=== PATIENT | female | born 1985 | race American Indian/Alaskan Native ===

== ENCOUNTER 2018-08-01 19:29 | Emergency (ER) | payer MEDICAID ==
[2018-08-01 19:54] VITALS: BP 172/130
--- NOTE | 2018-08-01 20:29 | EDM.PDOC ---
ED HPI GENERAL MEDICAL PROBLEM - General Chief Complaint: ENT Problem Stated Complaint: TOOTH PAIN Time Seen by Provider: 08/01/18 20:10 Source of Information: Reports: Patient History Limitations: Reports: No Limitations - History of Present Illness Onset: Gradual Duration: Day(s): (2 days) Location: Reports: Face (dental pain) Quality: Reports: Sharp, Throbbing Severity: Severe Improves with: Reports: None Worsens with: Reports: None Treatments CARCASS SPLITTER: Reports: Acetaminophen, NSAIDS Left Tooth/Teeth Pain Score (Numeric/FACES): 10 - Related Data Allergies Allergy/AdvReac Type Severity Reaction Status Date / Time Penicillins Allergy Rash Verified 08/01/18 19:58 Home Meds: Home Meds Labetalol HCl [Labetalol] 08/01/18 [History] Lisinopril 08/01/18 [History] Past Medical History Cardiovascular History: Reports: Hypertension 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 ACCOUNTING 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 History: 7 para 6 Other Musculoskeletal History: neck tension a couple of times/weak causes arms to get tingly Psychiatric History: Reports: Anxiety, Depression Endocrine/Metabolic History: Reports: Diabetes, Type II Social & Family History - Tobacco Use Smoking Status *Q: Light Tobacco Smoker Years of Tobacco use: 16 Packs/Tins Daily: 0.5 - Caffeine Use Caffeine Use: Reports: Energy Drinks, Soda - Recreational Drug Use Recreational Drug Use: Yes Recreational Drug Type: Reports: Methamphetamine Recreational Drug Use Frequency: Weekly ED ROS ENT - Review of Systems Review Of Systems: See Below Constitutional: Reports: Other (dental pain x 2 days) HEENT: Reports: Dental Pain, Glasses Respiratory: Reports: No Symptoms Cardiovascular: Reports: No Symptoms Endocrine: Reports: No Symptoms GI/Abdominal: Reports: No Symptoms : Reports: Other (has 6 children age 14 year to 1 year, all live with her Mom , has IUD in place for control.) Skin: Reports: Other (right AC with puncture wound from injection of meth, last use 3 days ago.) Neurological: Reports: No Symptoms Psychiatric: Reports: Other (addiction, discussed going to treatment for meth, she declines at this time, will think about it.) Hematologic/Lymphatic: Reports: No Symptoms Immunologic: Reports: No Symptoms ED EXAM, ENT - Physical Exam Exam: See Below Exam Limited By: No Limitations General Appearance: Thin, Other (laying on exam table curled up in ball) Eye Exam: Bilateral Eye: PERRL Ears: Normal External Exam Nose: Normal Inspection Mouth/Throat: Normal Lips, Normal Oropharynx, Dental Pain, Dental Tenderness, Other (multi upper front teeth with decay. painful to touch) Head: Atraumatic, Normocephalic Neck: Normal Inspection, Supple, Non-Tender, Full Range of Motion Respiratory/Chest: No Respiratory Distress, Lungs Clear Cardiovascular: Regular Rate, Rhythm, No Murmur Extremities: Other (left arm with 2 puncture wounds without signs of infection or abscess.) Neurological: No Motor/Sensory Deficits Psychiatric: Flat Affect Skin: Warm, Dry, Wound/Incision (left AC with puncture wounds without redness, discharge or signs of infection.) Lymphatic: No Adenopathy Course - Vital Signs Last Recorded V/S: Last Vital Signs Temp 36.1 C 08/01/18 19:57 Pulse 71 08/01/18 19:57 Resp 16 08/01/18 19:57 BP 172/130 H 08/01/18 19:57 Pulse Ox 100 08/01/18 19:57 Departure - Departure Time of Disposition: 20:38 Disposition: Home, Self-Care 01 Condition: Good Clinical Impression: Otitis media, Dental caries, Methamphetamine abuse - Discharge Information *PRESCRIPTION DRUG MONITORING PROGRAM REVIEWED*: Yes *COPY OF PRESCRIPTION DRUG MONITORING REPORT IN PATIENT JOSEPH: Not Applicable Referrals: PCP,None [Primary Care Provider] - Forms: ED Department Discharge Care Plan Goals: dental pain -clindamycin 150mg one capsule 3 times a day til gone -hydrocodone 5-325mg one po 3 to 4 hours as needed for pain #4 tabs -continue tylenol and motrin as directed -referral to Dental Clinic in morning. return to ER for fever greater than 101, facial swelling, nausea, vomiting, rash or any concerns. Meth abuse -offer treatment for addiction -discussed treatment for addiction. -Ms. Mackay declines - Problem List & Annotations (1) Dental caries SNOMED Code(s): 20912618 Code(s): K02.9 - DENTAL CARIES, UNSPECIFIED Status: Acute Priority: High Current Visit: Yes (2) Methamphetamine abuse SNOMED Code(s): 753284219 Code(s): F15.10 - OTHER STIMULANT ABUSE, UNCOMPLICATED Status: Acute Priority: Low Current Visit: Yes - Problem List Review Problem List Initiated/Reviewed/Updated: Yes - Assessment/Plan Plan: dental pain -clindamycin 150mg one capsule 3 times a day til gone -hydrocodone 5-325mg one po 3 to 4 hours as needed for pain #4 tabs -continue tylenol and motrin as directed -referral to Dental Clinic in morning. return to ER for fever greater than 101, facial swelling, nausea, vomiting, rash or any concerns. Meth abuse -offer treatment for addiction -discussed treatment for addiction. -Ms. Codie omalley
== END 2018-08-01 20:48 | disposition home or self-care (01) ==
LOC: JP.ED 19:29
DX: K02.9 Dental caries, unspecified (principal); F15.10 Other stimulant abuse, uncomplicated; S41.132A Puncture wound without foreign body of left upper arm, initial encounter; I10 Essential (primary) hypertension; F17.210 Nicotine dependence, cigarettes, uncomplicated; Z79.899 Other long term (current) drug therapy; Z88.0 Allergy status to penicillin; X58.XXXA Exposure to other specified factors, initial encounter
CPT/HCPCS: 99283

== ENCOUNTER 2018-08-14 19:33 | Emergency (ER) | payer MEDICAID ==
[2018-08-14] MEDS ORDERED: Lisinopril 20 MG Tab PO ONE (20:22)
[2018-08-14] MEDS ORDERED: Labetalol 100 MG Tab PO ONE (20:23)
--- NOTE | 2018-08-14 20:27 | EDM.PDOC ---
ED HPI GENERAL MEDICAL PROBLEM - General Chief Complaint: Genitourinary Problem Stated Complaint: UTI? Time Seen by Provider: 08/14/18 20:24 Source of Information: Reports: Patient History Limitations: Reports: No Limitations - History of Present Illness INITIAL COMMENTS - FREE TEXT/NARRATIVE: pt has the urge to void frequently. She has pressure over her bladder. She states her bladder symptoms started today. She has been out of her bp meds for about 1 week. She has a elevated bp. Onset: Today, Other ( The bladder symptoms started today. 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 ) HEENT: Reports: No Symptoms Respiratory: Reports: No Symptoms Cardiovascular: Reports: No Symptoms Endocrine: Reports: No Symptoms GI/Abdominal: Reports: Other ( Pain and pressure over her bladder. ) : Reports: Frequency, Other ( bladder pressure. ) Musculoskeletal: Reports: No Symptoms Skin: Reports: No Symptoms ED EXAM, GI/ABD - Physical Exam Exam: See Below Text/Narrative:: pt has been out of her bp meds--lisinopril and labetol for 1 week. Her bp is very elevated. She has urinary frequency and pressure over the bladder. She has the urge to void frequently. Exam Limited By: No Limitations General Appearance: Alert, Mild Distress, Other ( bp is 177/122. ) Eyes: Bilateral: Normal Appearance, EOMI Ears: Normal TMs Nose: Normal Inspection Throat/Mouth: Normal Inspection Head: Atraumatic Neck: Normal Inspection Respiratory/Chest: No Respiratory Distress Cardiovascular: Regular Rate, Rhythm GI/Abdominal Exam: Soft, Non-Tender (Female) Exam: Deferred Rectal (Female) Exam: Deferred Back Exam: Normal Inspection Extremities: Normal Inspection Neurological: Alert, Oriented, Normal Cognition Course - Vital Signs Last Recorded V/S: Last Vital Signs Temp 36.4 C 08/14/18 20:09 Pulse 88 08/14/18 20:46 Resp 14 08/14/18 20:09 BP 189/126 H 08/14/18 20:49 Pulse Ox 97 08/14/18 20:09 - Orders/Labs/Meds Labs: Laboratory Tests 08/14/18 08/14/18 Range/Units 20:00 21:32 Urine Color Yellow Urine Appearance Clear Urine pH 5.0 (4.5-8.0) Ur Specific [place] 1.025 (1.008-1.030) Urine Protein 30 H (NEGATIVE) mg/dL Urine Glucose (UA) Normal (NEGATIVE) mg/dL Urine Ketones Negative (NEGATIVE) mg/dL Urine Occult Blood Negative (NEGATIVE) Urine Nitrite Negative (NEGATIVE) Urine Bilirubin Small (NEGATIVE) Urine Urobilinogen 1 (NORMAL) mg/dL Ur Leukocyte Esterase Negative (NEGATIVE) Urine RBC 0-5 (0-5) Urine WBC 10-20 H (0-5) Ur Epithelial Cells Many Amorphous Sediment Few Urine Bacteria Few Urine Mucus Few Urine Other See note Urine HCG, Qual Negative Meds: Medications Discontinued Medications Generic Name Dose Route Start Last Admin Trade Name Freq PRN Reason Stop Dose Admin Labetalol HCl 100 mg 08/14/18 20:23 08/14/18 20:46 Normodyne PO 08/14/18 20:24 100 mg ONETIME ONE Administration Lisinopril 20 mg 08/14/18 20:22 08/14/18 20:49 Prinivil PO 08/14/18 20:23 20 mg DAILY ONE Administration Lisinopril Confirm 08/14/18 20:43 08/14/18 20:52 Prinivil Administered 08/14/18 20:44 Not Given Dose 20 mg .ROUTE .STK-MED ONE - Re-Assessments/Exams Free Text/Narrative Re-Assessment/Exam: 08/14/18 21:27 pt was given labetol and lisinopril here. She had a urine that did not look real marked. A culture was set up. Departure - Departure Time of Disposition: 21:28 Disposition: Home, Self-Care 01 Condition: Fair Clinical Impression: UTI (urinary tract infection), Hypertension, Has run out of medications - Discharge Information Instructions: Urinary Tract Infection, Adult, [id number], Hypertension, Easy- to-Read Referrals: PCP,None [Primary Care Provider] - Forms: ED Department Discharge Care Plan Goals: push fluids, pyridium 200mg tid for 2 days, cipro 500mg bid for 7 days. pt was given a 1 week supply of labetelol and lisinopril
[2018-08-14] MEDS ORDERED: Lisinopril 10 MG Tab ONE (20:43)
[2018-08-14 20:50] VITALS: BP 189/126
== END 2018-08-14 22:18 | disposition home or self-care (01) ==
LOC: JP.ED 19:33
DX: N39.0 Urinary tract infection, site not specified (principal); I10 Essential (primary) hypertension; E11.9 Type 2 diabetes mellitus without complications; Z88.0 Allergy status to penicillin; F17.210 Nicotine dependence, cigarettes, uncomplicated
CPT/HCPCS: 81001; 81025; 87086; 99284; A9270; 99283

== ENCOUNTER 2019-01-04 00:50 | Emergency (ER) | payer MEDICAID ==
[2019-01-04 01:10] VITALS: BP 153/104
[2019-01-04] MEDS ORDERED: HYDROmorphone 0.5 MG/0.5 ML Syringe IVPUSH ONE ×2 (01:17→02:03)
--- NOTE | 2019-01-04 01:19 | EDM.PDOC ---
ED HPI GENERAL MEDICAL PROBLEM - General Chief Complaint: Abdominal Pain Stated Complaint: STOMACH PAIN, RIGHT SIDE Time Seen by Provider: 01/04/19 01:00 Source of Information: Reports: Patient, Family History Limitations: Reports: No Limitations - History of Present Illness INITIAL COMMENTS - FREE TEXT/NARRATIVE: 33-year-old female with fairly sudden right upper quadrant pain after eating at 9 PM last evening. It's been very persistent, she tried Prilosec and Tums without relief. Some radiation of pain to her back, no nausea or vomiting. No fever or chills. No previous similar pain. She is very uncomfortable. Onset: Sudden Duration: Hour(s): (Pain for 4 hours) Location: Reports: Abdomen Severity: Moderate Associated Symptoms: Reports: No Other Symptoms Treatments BALE COVERER: Reports: Other (see below) Other Treatments BALE COVERER: Unknown Abdominal Pain Score (Numeric/FACES): 10 - Related Data Allergies Allergy/AdvReac Type Severity Reaction Status Date / Time Penicillins Allergy Rash Verified 09/24/18 07:36 Home Meds: Home Meds Labetalol HCl [Labetalol] 100 mg PO DAILY 08/01/18 [History] Lisinopril 20 mg PO DAILY 08/01/18 [History] Omeprazole 1 tab PO DAILY 09/17/18 [History] Sertraline HCl 1 tab PO DAILY 09/17/18 [History] Meclizine [Antivert] 25 mg PO Q6H PRN #20 tab 09/24/18 [Rx] Past Medical History HEENT History: Reports: Impaired Vision Cardiovascular History: Reports: Hypertension Gastrointestinal History: Reports: GERD 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 HAND History: 7 para 6 Other Musculoskeletal History: neck tension a couple of times/weak causes arms to get tingly Psychiatric History: Reports: Addiction, Anxiety, Depression, Suicide Attempt Endocrine/Metabolic History: Reports: Diabetes, Type II - Infectious Disease History Infectious Disease History: Reports: Chicken Pox Social & Family History - Tobacco Use Smoking Status *Q: Heavy Tobacco Smoker Years of Tobacco use: 15 Packs/Tins Daily: 1 - Caffeine Use Caffeine Use: Reports: Coffee - Recreational Drug Use Recreational Drug Use: No ED ROS GENERAL - Review of Systems Review Of Systems: See Below Constitutional: Denies: Fever, Chills HEENT: Reports: No Symptoms Respiratory: Denies: Shortness of Breath Cardiovascular: Denies: Chest Pain GI/Abdominal: Reports: Abdominal Pain. Denies: Constipation, Diarrhea : Reports: No Symptoms Skin: Reports: No Symptoms Neurological: Reports: No Symptoms ED EXAM, GI/ABD - Physical Exam Exam: See Below Exam Limited By: No Limitations General Appearance: Alert, Mild Distress (Tearful, fairly uncomfortable) Eyes: Bilateral: Normal Appearance (No jaundice) Respiratory/Chest: No Respiratory Distress, Lungs Clear Cardiovascular: Regular Rate, Rhythm GI/Abdominal Exam: Normal Bowel Sounds, Guarding (Patient is guarding in the right upper quadrant and epigastric area, very tender to palpation) Neurological: Alert Psychiatric: Anxious Skin Exam: Warm, Dry Course - Vital Signs Last Recorded V/S: Last Vital Signs Temp 96.8 F 01/04/19 01:11 Pulse 74 01/04/19 01:11 Resp 18 01/04/19 01:11 BP 153/104 H 01/04/19 01:11 Pulse Ox 99 01/04/19 01:11 - Orders/Labs/Meds Labs: Laboratory Tests 01/04/19 01/04/19 01/04/19 Range/Units 01:25 01:25 01:26 WBC 6.9 (4.5-11.0) K/uL RBC 4.46 (3.30-5.50) M/uL Hgb 12.3 (12.0-15.0) g/dL Hct 36.5 (36.0-48.0) % MCV 82 (80-98) fL MCH 28 (27-31) pg MCHC 34 (32-36) % Plt Count 230 (150-400) K/uL Neut % (Auto) 56 (36-66) % Lymph % (Auto) 32 (24-44) % [place] % (Auto) 9 H (2-6) % Eos % (Auto) 3 (2-4) % Baso % (Auto) 0 (0-1) % Sodium 140 (140-148) mmol/L Potassium 3.5 L (3.6-5.2) mmol/L Chloride 102 (100-108) mmol/L Carbon Dioxide 30 (21-32) mmol/L Anion Gap 11.5 (5.0-14.0) mmol/L BUN 14 D (7-18) mg/dL Creatinine 1.0 (0.6-1.0) mg/dL Est Cr Clr Drug Dosing 63.29 mL/min Estimated GFR (MDRD) > 60 (>60) Glucose 142 H (74-106) mg/dL Calcium 8.7 (8.5-10.1) mg/dL Total Bilirubin 0.4 (0.2-1.0) mg/dL AST 53 H (15-37) U/L ALT 110 H (12-78) U/L Alkaline Phosphatase 65 (46-116) U/L Total Protein 7.2 (6.4-8.2) g/dL Albumin 3.6 (3.4-5.0) g/dL Globulin 3.6 H (2.3-3.5) g/dL Albumin/Globulin Ratio 1.0 L (1.2-2.2) Lipase 78 (73-393) U/L Urine Color Yellow Urine Appearance Clear Urine pH 5.0 (4.5-8.0) Ur Specific [place] 1.025 (1.008-1.030) Urine Protein Trace (NEGATIVE) mg/dL Urine Glucose (UA) Normal (NEGATIVE) mg/dL Urine Ketones Negative (NEGATIVE) mg/dL Urine Occult Blood Negative (NEGATIVE) Urine Nitrite Negative (NEGATIVE) Urine Bilirubin Negative (NEGATIVE) Urine Urobilinogen 8 (NORMAL) mg/dL Ur Leukocyte Esterase Negative (NEGATIVE) Urine RBC 0-5 (0-5) Urine WBC 0-5 (0-5) Ur Epithelial Cells Moderate Amorphous Sediment Few Urine Bacteria Few Urine Mucus Moderate Urine Opiates Screen (NEGATIVE) Ur Oxycodone Screen (NEGATIVE) Urine Methadone Screen (NEGATIVE) Ur Propoxyphene Screen (NEGATIVE) Ur Barbiturates Screen (NEGATIVE) Ur Tricyclics Screen (NEGATIVE) Ur Phencyclidine Scrn (NEGATIVE) Ur Amphetamine Screen (NEGATIVE) U Methamphetamines Scrn (NEGATIVE) Urine MDMA Screen (NEGATIVE) U Benzodiazepines Scrn (NEGATIVE) U Cocaine Metab Screen (NEGATIVE) U Marijuana (THC) Screen (NEGATIVE) 01/04/19 Range/Units 01:26 WBC (4.5-11.0) K/uL RBC (3.30-5.50) M/uL Hgb (12.0-15.0) g/dL Hct (36.0-48.0) % MCV (80-98) fL MCH (27-31) pg MCHC (32-36) % Plt Count (150-400) K/uL Neut % (Auto) (36-66) % Lymph % (Auto) (24-44) % [place] % (Auto) (2-6) % Eos % (Auto) (2-4) % Baso % (Auto) (0-1) % Sodium (140-148) mmol/L Potassium (3.6-5.2) mmol/L Chloride (100-108) mmol/L Carbon Dioxide (21-32) mmol/L Anion Gap (5.0-14.0) mmol/L BUN (7-18) mg/dL Creatinine (0.6-1.0) mg/dL Est Cr Clr Drug Dosing mL/min Estimated GFR (MDRD) (>60) Glucose (74-106) mg/dL Calcium (8.5-10.1) mg/dL Total Bilirubin (0.2-1.0) mg/dL AST (15-37) U/L ALT (12-78) U/L Alkaline Phosphatase (46-116) U/L Total Protein (6.4-8.2) g/dL Albumin (3.4-5.0) g/dL Globulin (2.3-3.5) g/dL Albumin/Globulin Ratio (1.2-2.2) Lipase (73-393) U/L Urine Color Urine Appearance Urine pH (4.5-8.0) Ur Specific [place] (1.008-1.030) Urine Protein (NEGATIVE) mg/dL Urine Glucose (UA) (NEGATIVE) mg/dL Urine Ketones (NEGATIVE) mg/dL Urine Occult Blood (NEGATIVE) Urine Nitrite (NEGATIVE) Urine Bilirubin (NEGATIVE) Urine Urobilinogen (NORMAL) mg/dL Ur Leukocyte Esterase (NEGATIVE) Urine RBC (0-5) Urine WBC (0-5) Ur Epithelial Cells Amorphous Sediment Urine Bacteria Urine Mucus Urine Opiates Screen Negative (NEGATIVE) Ur Oxycodone Screen Negative (NEGATIVE) Urine Methadone Screen Negative (NEGATIVE) Ur Propoxyphene Screen Negative (NEGATIVE) Ur Barbiturates Screen Negative (NEGATIVE) Ur Tricyclics Screen Negative (NEGATIVE) Ur Phencyclidine Scrn Negative (NEGATIVE) Ur Amphetamine Screen Presumptive positive H (NEGATIVE) U Methamphetamines Scrn Presumptive positive H (NEGATIVE) Urine MDMA Screen Presumptive positive H (NEGATIVE) U Benzodiazepines Scrn Negative (NEGATIVE) U Cocaine Metab Screen Negative (NEGATIVE) U Marijuana (THC) Screen Negative (NEGATIVE) Meds: Medications Discontinued Medications Generic Name Dose Route Start Last Admin Trade Name Nancy PRN Reason Stop Dose Admin Hydromorphone HCl 0.5 mg 01/04/19 01:17 01/04/19 01:24 Dilaudid IVPUSH 01/04/19 01:18 0.5 mg ONETIME ONE Administration Hydromorphone HCl 0.5 mg 01/04/19 02:03 01/04/19 02:07 Dilaudid IVPUSH 01/04/19 02:04 0.5 mg ONETIME ONE Administration Sodium Chloride 1,000 mls @ 500 mls/hr 01/04/19 01:30 01/04/19 01:25 Normal Saline IV 500 mls/hr ASDIRECTED PENDING SALE TO [facility] Administration - Re-Assessments/Exams Free Text/Narrative Re-Assessment/Exam: 01/04/19 01:19 Normal saline at 500 mL an hour was started, she was given 0.5 mg of IV Dilaudid. CBC CMP and lipase were obtained. 01/04/19 02:04 White count was normal, AST and ALT which is slightly elevated, alkaline phosphatase and lipase were normal as well as bilirubin. Unfortunately she was positive for methamphetamine in the urine. Her pain was improved. She is going to return in the morning for a gallbladder ultrasound. Departure - Departure Time of Disposition: : Disposition: Home, Self-Care 01 Condition: Fair Clinical Impression: Abdominal pain Qualifiers: Abdominal location: right upper quadrant Qualified Code(s): R10.11 - Right upper quadrant pain - Discharge Information Instructions: Abdominal Pain, Adult, [id number] Referrals: PCP,None [Primary Care Provider] - Forms: ED Department Discharge Care Plan Goals: Return tomorrow morning for a gallbladder ultrasound, don't eat anything before the test. Recheck in the emergency room if not improving. Use pain medicines tonight as needed if pain is persistent.
[2019-01-04] MEDS ORDERED: Sodium Chloride 0.9% 1,000 ML IV SCH (01:30)
== END 2019-01-04 02:26 | disposition home or self-care (01) ==
LOC: JP.ED 00:50
DX: R10.11 Right upper quadrant pain (principal); I10 Essential (primary) hypertension; K21.9 Gastro-esophageal reflux disease without esophagitis; F41.9 Anxiety disorder, unspecified; E11.9 Type 2 diabetes mellitus without complications; F32.9 Major depressive disorder, single episode, unspecified; F17.210 Nicotine dependence, cigarettes, uncomplicated; Z88.0 Allergy status to penicillin
CPT/HCPCS: 36415; 80053; 80305; 81001; 83690; 85025; 96361; 96374; 96376; 99284; J1170; J7030

== ENCOUNTER 2019-01-04 08:57 | Inpatient (IN) | payer MEDICAID ==
[2019-01-04] MEDS ORDERED: Sodium Chloride 0.9% 10 ML Syringe FLUSH PRN (09:04)
[2019-01-04] MEDS ORDERED: fentaNYL 100 MCG/2 ML SDV IVPUSH ONE (09:08)
[2019-01-04] MEDS: Lactated Ringers 1,000 ML IV SCH ×2 (09:33→11:41)
[2019-01-04] MEDS: Ondansetron 4 MG/2 ML SDV IV PRN ×2 (09:34→19:23)
[2019-01-04] MEDS ORDERED: Ondansetron 4 MG/2 ML SDV ONE (09:55)
[2019-01-04] MEDS ORDERED: Rocuronium 50 MG/5 ML Vial ONE (09:55)
[2019-01-04] MEDS ORDERED: Neostigmine Methylsulfate 1 MG/ML 5 ML Syringe ONE (09:55)
[2019-01-04] MEDS ORDERED: Dexamethasone 4 MG/ML SDV ONE (09:55)
[2019-01-04] MEDS ORDERED: Glycopyrrolate 0.2 MG/ML 5 ML MDV ONE (09:55)
[2019-01-04] MEDS ORDERED: Propofol 200 MG/20 ML SDV ONE (09:55)
[2019-01-04] MEDS ORDERED: fentaNYL 250 MCG/5 ML SDV ONE (09:56)
[2019-01-04] MEDS ORDERED: cefOXitin 2 GM in Sodium Chloride 0.9% 50 ML IV ONE (12:00)
[2019-01-04] MEDS: Lidocaine 1% with EPINEPHrine 1:100,000 50 ML MDV ONE ×2 (12:51→13:23)
[2019-01-04] MEDS: Bupivacaine 0.5% 50 ML MDV ONE ×2 (12:51→13:23)
--- NOTE | 2019-01-04 13:18 | CRLCR ---
Indication: Dilatation of the common bile duct on ultrasound, cholelithiasis. Technique: Two intraoperative supine views of the upper abdomen. Comparison: Correlation with right upper quadrant ultrasound from same date. Findings/Impression: : Two images demonstrate contrast material opacifying the common bile duct and proximal biliary tree and proximal duodenum. No definite filling defect identified. There is pneumoperitoneum consistent with interoperative state. A gastric tube tip terminates at the level of the mid stomach. Dictated by Janeth Mazariegos MD @ Jan 04 2019 1:12PM Signed by Dr. Janeth Mazariegos @ Jan 04 2019 1:16PM
[2019-01-04] MEDS ORDERED: fentaNYL 100 MCG/2 ML SDV IVPUSH PRN (13:45)
[2019-01-04] MEDS ORDERED: Meclizine 25 MG Tab PO PRN (13:45)
[2019-01-04] MEDS: Acetaminophen/HYDROcodone 325-5 MG Tab PO PRN ×2 (19:23→23:13)
--- NOTE | 2019-01-04 21:10 | OR ---
DATE OF PROCEDURE: 01/04/2019 PREOPERATIVE DIAGNOSIS: Acute cholecystitis with cholelithiasis, slightly dilated common duct. POSTOPERATIVE DIAGNOSIS: Acute cholecystitis with cholelithiasis, unremarkable common duct. PROCEDURE: Laparoscopic cholecystectomy with intraoperative cholangiogram. SURGEON: Trever Acosta MD. ANESTHESIA: General endotracheal. INDICATION: This 33-year-old female is referred for a laparoscopic cholecystectomy. Last evening she developed severe upper abdominal pain primarily in the right upper quadrant. She presented to the emergency room. She was afebrile. Her alkaline phosphatase and total bilirubin were unremarkable. She was released to come back today for an abdominal ultrasound. This shows a distended gallbladder with a stone impacted in the neck of the gallbladder. Her pain continues. Also, it said that the common duct was 7 mm, which is just to the edge of being enlarged. She was taken to the operating room for a laparoscopic cholecystectomy with intraoperative cholangiogram. I counseled her for surgery including risks and alternatives and she gave her informed consent to proceed. DESCRIPTION OF PROCEDURE: After adequate general endotracheal anesthesia was obtained, the patient's abdomen was prepped and draped in the usual sterile fashion. The leg compression stockings were in place and used during the entire procedure. Time-out was held. An infraumbilical semicircular incision was made. Under direct vision, a 12-mm port was introduced in the abdomen through this incision using the Optiview technique. The camera was introduced into the abdomen and the abdomen was insufflated to a pressure of 15 mmHg with carbon dioxide. No evidence of intraabdominal injuries was seen. Under direct vision, a 12-mm port was placed in the epigastrium and a 5-mm port was placed in the right lower quadrant. The gallbladder was noted to be markedly distended. It had kind of a pale erythematous hue to it. There was some fluid around the gallbladder, also adhesions of omentum to it. The cystic duct and arteries were dissected free. A clip was placed on the cystic duct right at the gallbladder. A ductotomy was made next to this and through this, a cholangiocatheter manufactured by [employer] was placed. Cholangiograms were then obtained by injecting 7 and then 20 mL of half-strength contrast material. This showed good flow into the duodenum and a normal-sized duct. I did not notice any filling defects and there was contrast going back up into the hepatic radicals. The cholangiocatheter was removed and the duct was clipped three times adjacent to the ductotomy and divided. The cystic artery was then clipped up on the gallbladder once a couple of times proximally and divided between clips. The gallbladder was then dissected free from the gallbladder bed using Bovie electrocautery. The gallbladder was placed in a sample retrieval bag and elevated up through the anterior abdominal wall via the epigastric port site. To accomplish this, we did have to enlarge the incision because of a large stone in the thickened gallbladder. The gallbladder was cultured off the field. The epigastric port was reintroduced back into the abdomen. The gallbladder bed was irrigated and suctioned dry. Hemostasis was obtained with electrocautery. The fascial closure device was used to place a 0 Vicryl stitch in theepigastric fascial defect. The infraumbilical port was removed with a [id number] stitch of 0 Vicryl used to close this fascial defect. We evacuated as much CO2 as we could from the abdomen via the 5 mm port side in the right lower quadrant and then the 5-mm port site in the right lower quadrant was removed. Lidocaine 1% with epinephrine in a 50:50 mix with 0.5% Marcaine was infiltrated about all incisions. 4-0 Vicryl using a subcuticular stitch was placed to approximate the skin incisions. Dermabond was applied. The anesthesia was reversed. She was extubated and brought to recovery room in good condition. Trever Acosta MD /[id number] OSBALDO
[2019-01-04] MEDS: Dextrose 5%-Lactated Ringers 1,000 ML IV SCH (21:21)
[2019-01-05] MEDS: Acetaminophen/HYDROcodone 325-5 MG Tab PO PRN ×3 (03:43→13:39)
[2019-01-05] MEDS: Dextrose 5%-Lactated Ringers 1,000 ML IV SCH (05:25)
--- NOTE | 2019-01-05 06:43 | PCM.DCSUM1 ---
Discharge Summary - Hospital Course Free Text/Narrative:: This 33 year old female developed severe abdominal pain two nights ago. She presented to the ER and was released with plan for an abdominal ultrasound yesterday morning. This showed a single large gall stone in the neck of the gall bladder with a common duct at edge of enlarged at 7 mm. She was taken to the OR after receiving 2 grams of IV Cefoxitin. She underwent a laparoscopic cholecystectomy with intra operative cholangiogram which appeared unremarkable. She currently is eating, feels much better and wants to go home. Her alkaline phosphatase and total bilirubin are unremarkable. Her Hgb is greater than 10. She is discharged today in good condition. HPI Initial Comments: See above narrative. Brief History: See above narrative. Diagnosis: Stroke: No - Discharge Data Discharge Date: 01/05/19 Discharge Disposition: Home, Self-Care 01 Condition: Good - Discharge Diagnosis/Problem(s) (1) Status post laparoscopic cholecystectomy SNOMED Code(s): 389415344, [id number], [id number] ICD Code: Z90.49 - ACQUIRED ABSENCE OF OTHER SPECIFIED PARTS OF DIGESTIVE TRACT Status: Acute Current Visit: No - Patient Summary/Data Operative Procedure(s) Performed: Laparoscopic cholecystectomy with IOC. Consults: Consultations 01/04/19 13:45 Respiratory Care Assess and Treatment [CONS] Routine Comment: Physician Instructions: Post-Op Pneumonia Prevention Hospital Course: See above narrative. - Patient Instructions Diet: Usual Diet as Tolerated Activity: As Tolerated (Avoid activity that causes discomfort) Driving: Do Not Drive (Do not drive while taking narcotic pain medication. ) Showering/Bathing: Shower in AM Notify Provider of: Fever, Increased Pain, Swelling and Redness, Drainage, Nausea and/or Vomiting - Discharge Plan *PRESCRIPTION DRUG MONITORING PROGRAM REVIEWED*: No *COPY OF PRESCRIPTION DRUG MONITORING REPORT IN PATIENT JOSEPH: No Prescriptions/Med Rec: Acetaminophen/HYDROcodone [[place] 325-5 MG] 2 tab PO Q4H PRN #30 tablet PRN Reason: Pain (Moderate 4-6) Home Medications: Home Meds Labetalol HCl [Labetalol] 100 mg PO DAILY 08/01/18 [History] Lisinopril 20 mg PO DAILY 08/01/18 [History] Omeprazole 20 mg PO DAILY 09/17/18 [History] Sertraline HCl 50 mg PO DAILY 09/17/18 [History] Meclizine [Antivert] 25 mg PO Q6H PRN #20 tab 09/24/18 [Rx] Acetaminophen/HYDROcodone [[place] 325-5 MG] 2 tab PO Q4H PRN #30 tablet 01/05/19 [Rx] Patient Handouts: Laparoscopic Cholecystectomy Referrals: Trever Acosta MD [Physician] - - Discharge Summary/Plan Comment DC Time >30 min.: Yes Discharge Summary/Plan Comment: See above narrative. - Patient Data Vitals - Most Recent: Last Vital Signs Temp 97.4 F 01/05/19 03:00 Pulse 72 01/05/19 03:00 Resp 16 01/05/19 03:00 BP 105/57 L 01/05/19 03:00 Pulse Ox 98 01/05/19 03:00 I&O - Last 24 hours: Intake & Output 01/04/19 01/04/19 01/05/19 14:59 22:59 06:59 Intake Total 8 1720 Balance 8 1720 Lab Results - Last 24 hrs: Laboratory Results - last 24 hr 01/04/19 01/04/19 01/05/19 Range/Units 01:30 18:00 04:50 WBC 13.0 H 10.9 (4.5-11.0) K/uL RBC 4.25 3.75 (3.30-5.50) M/uL Hgb 11.9 L 10.5 L (12.0-15.0) g/dL Hct 35.0 L 31.5 L (36.0-48.0) % MCV 82 84 (80-98) fL MCH 28 28 (27-31) pg MCHC 34 33 (32-36) % Plt Count 200 181 (150-400) K/uL Total Bilirubin (0.2-1.0) mg/dL Alkaline Phosphatase (46-116) U/L HCG, Qual Negative 01/05/19 Range/Units 04:50 WBC (4.5-11.0) K/uL RBC (3.30-5.50) M/uL Hgb (12.0-15.0) g/dL Hct (36.0-48.0) % MCV (80-98) fL MCH (27-31) pg MCHC (32-36) % Plt Count (150-400) K/uL Total Bilirubin 0.9 D (0.2-1.0) mg/dL Alkaline Phosphatase 51 (46-116) U/L HCG, Qual IKKO Results - Last 24 hrs: Microbiology 01/04/19 13:55 Gram Stain - Final Abdominal Fluid - Aspirate 01/04/19 13:55 Gram Stain - Final Gallbladder Med Orders - Current: Current Medications Hydrocodone Bitart/Acetaminophen ([place] 325-5 Mg) 1 tab PO Q4H PRN PRN Reason: Pain (mild 1-3) Hydrocodone Bitart/Acetaminophen ([place] 325-5 Mg) 2 tab PO Q4H PRN PRN Reason: Pain (moderate 4-6) Last Admin: 01/05/19 03:43 Dose: 2 tab Fentanyl (Sublimaze) 50 mcg IVPUSH Q1H PRN PRN Reason: Pain (severe 7-10) Last Admin: 01/04/19 16:06 Dose: 50 mcg Lactated Ringer's (Ringers, Lactated) 1,000 mls @ 500 mls/hr IV ASDIRECTED [facility] Last Admin: 01/04/19 11:41 Dose: 500 mls/hr Dextrose/Lactated Ringer's (Dextrose 5%-Lactated Ringers) 1,000 mls @ 125 mls/ hr IV ASDIRECTED [facility] Last Admin: 01/05/19 05:25 Dose: 125 mls/hr Labetalol HCl (Normodyne) 100 mg PO DAILY [facility] Lisinopril (Prinivil) 20 mg PO DAILY [facility] Meclizine HCl (Antivert) 25 mg PO Q6H PRN PRN Reason: Dizziness Ondansetron HCl (Zofran) 4 mg IV Q4H PRN PRN Reason: Nausea/Vomiting Last Admin: 01/04/19 19:23 Dose: 4 mg Pantoprazole Sodium (Protonix) 40 mg PO ACBREAKFAST [facility] Sertraline HCl (Zoloft) 50 mg PO DAILY [facility] Sodium Chloride (Saline Flush) 10 ml FLUSH ASDIRECTED PRN PRN Reason: Keep Vein Open Discontinued Medications Bupivacaine HCl (Marcaine 0.5%) Confirm Administered Dose 50 ml .ROUTE .STK-MED ONE Stop: 01/04/19 10:50 Last Admin: 01/04/19 13:23 Dose: 20 ml Dexamethasone (Dexamethasone) Confirm Administered Dose 4 mg .ROUTE .STK-MED ONE Stop: 01/04/19 09:56 Fentanyl (Sublimaze) 50 mcg IVPUSH ONETIME ONE Stop: 01/04/19 09:09 Last Admin: 01/04/19 09:34 Dose: 50 mcg Fentanyl (Sublimaze) Confirm Administered Dose 250 mcg .ROUTE .STK-MED ONE Stop: 01/04/19 09:57 Glycopyrrolate (Robinul) Confirm Administered Dose 1 mg .ROUTE .STK-MED ONE Stop: 01/04/19 09:56 Cefoxitin Sodium 2 gm/ Sodium (Chloride) 50 mls @ 100 mls/hr IV ONCALL ONE Stop: 01/04/19 12:29 Last Admin: 01/04/19 11:56 Dose: 100 mls/hr Lactated Ringer's (Ringers, Lactated) 2,000 ml IRR .STK-MED ONE Stop: 01/04/19 13:25 Last Admin: 01/04/19 13:24 Dose: 2,000 ml Lidocaine/Epinephrine (Xylocaine 1% With Epinephrine 1:100,000) Confirm Administered Dose 50 ml .ROUTE .STK-MED ONE Stop: 01/04/19 10:50 Last Admin: 01/04/19 13:23 Dose: 20 ml Neostigmine Methylsulfate (Neostigmine) Confirm Administered Dose 5 mg .ROUTE .STK-MED ONE Stop: 01/04/19 09:56 Ondansetron HCl (Zofran) Confirm Administered Dose 4 mg .ROUTE .STK-MED ONE Stop: 01/04/19 09:56 Propofol (Diprivan 20 Ml) Confirm Administered Dose 200 mg .ROUTE .STK-MED ONE Stop: 01/04/19 09:56 Rocuronium [place] (Zemuron) Confirm Administered Dose 50 mg .ROUTE .STK-MED ONE Stop: 01/04/19 09:56
[2019-01-05] MEDS ORDERED: Pantoprazole 40 MG Tab.CR PO SCH (07:30)
[2019-01-05] MEDS ORDERED: Sertraline 50 MG Tab PO SCH (09:00)
[2019-01-05] MEDS ORDERED: Lisinopril 20 MG Tab PO SCH (09:00)
[2019-01-05] MEDS ORDERED: Labetalol 100 MG Tab PO SCH (09:00)
[2019-01-05 11:14] VITALS: BP 106/62
== END 2019-01-05 14:22 | disposition home or self-care (01) | DRG 419 ==
LOC: JP.MS 08:57
PROVIDERS: ADMIT Surgery; ATTEND Surgery
PROC: 0FT44ZZ Resection of Gallbladder, Percutaneous Endoscopic Approach (ICD-10-PCS; principal; 2019-01-04)
PROC: BF03YZZ Plain Radiography of Gallbladder and Bile Ducts using Other Contrast (ICD-10-PCS; 2019-01-04)
DX: K80.00 Calculus of gallbladder with acute cholecystitis without obstruction (principal); F17.210 Nicotine dependence, cigarettes, uncomplicated; I10 Essential (primary) hypertension; F32.9 Major depressive disorder, single episode, unspecified; F41.9 Anxiety disorder, unspecified; K21.9 Gastro-esophageal reflux disease without esophagitis; H54.7 Unspecified visual loss; Z88.0 Allergy status to penicillin; Z91.5 Personal history of self-harm; E11.9 Type 2 diabetes mellitus without complications
CPT/HCPCS: 36415; 74300; 76705; 80053; 80305-QW; 81001; 82247; 83690; 84075; 84703; 85025; 85027; 87070; 87075; 87077; 87205; 88304; 96361; 96374; 96376; 99284-25; A9270-GY; J0694; J1100; J1170; J2405; J2704; J2710; J3010; J3490; J7030; J7042; J7050; J7120

== ENCOUNTER 2019-08-21 16:37 | Emergency (ER) | payer MEDICAID ==
[2019-08-21 17:13] VITALS: BP 167/117; PULSE 106
[2019-08-21] MEDS ORDERED: Ibuprofen 600 MG Tab PO ONE (17:20)
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
== END 2019-08-21 17:41 | disposition home or self-care (01) ==
LOC: JP.ED 16:37
DX: S00.83XA Contusion of other part of head, initial encounter (principal); S10.91XA Abrasion of unspecified part of neck, initial encounter; I10 Essential (primary) hypertension; K21.9 Gastro-esophageal reflux disease without esophagitis; F41.9 Anxiety disorder, unspecified; F32.9 Major depressive disorder, single episode, unspecified; E11.9 Type 2 diabetes mellitus without complications; F17.210 Nicotine dependence, cigarettes, uncomplicated; Z88.0 Allergy status to penicillin; Z79.899 Other long term (current) drug therapy; Y04.2XXA Assault by strike against or bumped into by another person, initial encounter
CPT/HCPCS: 99284; A9270

== ENCOUNTER 2020-06-16 15:39 | Emergency (ER) | payer MEDICAID ==
[2020-06-16 16:01] VITALS: BP 117/80; PULSE 95
--- NOTE | 2020-06-16 16:08 | EDM.PDOC ---
ED HPI GENERAL MEDICAL PROBLEM - General Chief Complaint: Lower Extremity Injury/Pain Stated Complaint: HURT RT KNEE Time Seen by Provider: 06/16/20 15:50 Source of Information: Reports: Patient, Old Records History Limitations: Reports: No Limitations - History of Present Illness INITIAL COMMENTS - FREE TEXT/NARRATIVE: 35 yo NA female was walking in her yard today and injured her R knee. This occurred about mid morning. No self tx. No pain at rest. No obvious knee swelling. No hx of the same. Has used crutches in the past. 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: Other (see below) (none) - Related Data Allergies Allergy/AdvReac Type Severity Reaction Status Date / Time Penicillins Allergy Rash Verified 09/24/18 07:36 Home Meds: Home Meds Labetalol HCl [Labetalol] 100 mg PO DAILY 08/01/18 [History] Lisinopril 20 mg PO DAILY 08/01/18 [History] Omeprazole 20 mg PO DAILY 09/17/18 [History] Sertraline HCl 50 mg PO DAILY 09/17/18 [History] Meclizine [Antivert] 25 mg PO Q6H PRN #20 tab 09/24/18 [Rx] Acetaminophen/HYDROcodone [[place] 325-5 MG] 2 tab PO Q4H PRN #30 tablet 01/05/19 [Rx] Past Medical History HEENT History: Reports: Impaired Vision Cardiovascular History: Reports: Hypertension Gastrointestinal History: Reports: GERD TARE MAN History: Reports: Other TARE MAN History: 7 para 6 Other Musculoskeletal History: neck tension a couple of times/weak causes arms to get tingly Psychiatric History: Reports: Addiction, Anxiety, Depression, Suicide Attempt Endocrine/Metabolic History: Reports: Diabetes, Type II - Infectious Disease History Infectious Disease History: Reports: Chicken Pox Social & Family History - Family History Family Medical History: Noncontributory - Caffeine Use Caffeine Use: Reports: Soda Review of Systems - Review of Systems Review Of Systems: See Below Constitutional: Reports: No Symptoms Musculoskeletal: Reports: Joint Pain (R medial knee) Skin: Reports: No Symptoms Neurological: Reports: No Symptoms ED EXAM, GENERAL - Physical Exam Exam: See Below Exam Limited By: No Limitations General Appearance: Alert, WD/WN, No Apparent Distress Extremities: Normal Inspection, No Pedal Edema, Limited Range of Motion (due to pain), Other (No joint line tenderness. Pain on palpation over the MCL and with stressing the MCL. No ligamentous laxity on exam. ). No: Non-Tender, Pedal Edema, Joint Swelling, Increased Warmth Neurological: Alert, Oriented, CN II-XII Intact, Normal Cognition, No Motor/Sensory Deficits Psychiatric: Normal Affect, Normal Mood Course - Vital Signs Last Recorded V/S: Last Vital Signs Temp 37.2 C 06/16/20 15:59 Pulse 95 06/16/20 15:59 Resp 16 06/16/20 15:59 BP 117/80 06/16/20 15:59 Pulse Ox 98 06/16/20 15:59 Departure - Departure Time of Disposition: 16:20 Disposition: Home, Self-Care 01 Condition: Fair Clinical Impression: MCL sprain of right knee Qualifiers: Encounter type: initial encounter Qualified Code(s): S83.411A - Sprain of medial collateral ligament of right knee, initial encounter Clinical Impression: (Ruled Out): Sprain of knee - Discharge Information *PRESCRIPTION DRUG MONITORING PROGRAM REVIEWED*: No *COPY OF PRESCRIPTION DRUG MONITORING REPORT IN PATIENT JOSEPH: No Instructions: Medial Collateral Knee Ligament Sprain Referrals: PCP,None [Primary Care Provider] - Additional Instructions: Wear the ROMAINE wrap and use the crutches as needed for support and pain control. You may take acetaminophen and/or ibuprofen for extra pain relief, follow the directions on the bottle. Recheck if not fully recovered in a week. Sepsis Event Note (ED) - Focused Exam Vital Signs: Vital Signs Temp Pulse Resp BP Pulse Ox 06/16/20 15:59 37.2 C 95 16 117/80 98
== END 2020-06-16 16:20 | disposition home or self-care (01) ==
LOC: JP.ED 15:39
DX: S83.411A Sprain of medial collateral ligament of right knee, initial encounter (principal); I10 Essential (primary) hypertension; E11.9 Type 2 diabetes mellitus without complications; F41.9 Anxiety disorder, unspecified; F32.9 Major depressive disorder, single episode, unspecified; K21.9 Gastro-esophageal reflux disease without esophagitis; Z79.899 Other long term (current) drug therapy; Z88.0 Allergy status to penicillin; X58.XXXA Exposure to other specified factors, initial encounter; Y92.096 Garden or yard of other non-institutional residence as the place of occurrence of the external cause
CPT/HCPCS: 99282; 99283

== ENCOUNTER 2020-08-21 16:54 | Emergency (ER) | payer MEDICAID ==
[2020-08-21 17:53] VITALS: BP 134/92; PULSE 86
--- NOTE | 2020-08-21 18:19 | EDM.PDOC ---
ED HPI GENERAL MEDICAL PROBLEM - General Chief Complaint: ENT Problem Stated Complaint: TOOTH PAIN Time Seen by Provider: 08/21/20 18:05 Source of Information: Reports: Patient History Limitations: Reports: No Limitations - History of Present Illness INITIAL COMMENTS - FREE TEXT/NARRATIVE: 35-year-old female with upper incisor and canine pain due to advanced decay and caries. Pain has been occurring for about a week. No significant facial swelling or fever. She has not been to a dentist in years. 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 SENIOR LEAD SOFTWARE ENGINEER History: 7 para 6 Musculoskeletal History: Reports: Other (See Below) Other Musculoskeletal History: torn mcl right knee Psychiatric History: Reports: Addiction, Anxiety, Depression, Suicide Attempt Endocrine/Metabolic History: Reports: Other (See Below) Other Endocrine/Metabolic History: prior type II DM diagnosis - Infectious Disease History Infectious Disease History: Reports: Chicken Pox - Past Surgical History GI Surgical History: Reports: Cholecystectomy Social & Family History - Family History Family Medical History: Noncontributory - Tobacco Use Smoking Status *Q: Light Tobacco Smoker Years of Tobacco use: 18 Packs/Tins Daily: 0.5 - Caffeine Use Caffeine Use: Reports: Soda Other Caffeine Use: many per day - Recreational Drug Use Recreational Drug Use: No ED ROS ENT - Review of Systems Review Of Systems: See Below Constitutional: Denies: Fever, Chills Respiratory: Denies: Shortness of Breath Cardiovascular: Denies: Chest Pain GI/Abdominal: Denies: Nausea, Vomiting Skin: Reports: No Symptoms ED EXAM, ENT - Physical Exam Exam: See Below Exam Limited By: No Limitations General Appearance: Alert, No Apparent Distress Mouth/Throat: Other (Patient has severe dental decay of both upper incisors and first canines bilaterally. No significant gingival erythema or swelling, but it is tender to palpation and percussion of the teeth. It) Respiratory/Chest: No Respiratory Distress Neurological: Alert, Oriented Psychiatric: Normal Affect, Normal Mood Skin: Warm, Dry Course - Vital Signs Last Recorded V/S: Last Vital Signs Temp 98.5 F 08/21/20 17:49 Pulse 86 08/21/20 17:49 Resp 16 08/21/20 17:49 BP 134/92 H 08/21/20 17:49 Pulse Ox 100 08/21/20 17:49 - Re-Assessments/Exams Free Text/Narrative Re-Assessment/Exam: 08/21/20 18:19 Patient agreed to see the dentist next week if a referral was set up. She was started on clindamycin 300 mg 3 times a day and will take for the next 5 days prior to going to the dentist on Wednesday. She will continue with ibuprofen and Tylenol for pain. Return sooner if worsening despite treatment Departure - Departure Time of Disposition: 18:29 Disposition: Home, Self-Care 01 Clinical Impression: Abscess, dental - Discharge Information Instructions: Dental Abscess Referrals: Luigi Brandt MD [Primary Care Provider] - Forms: ED Department Discharge Care Plan Goals: Take antibiotic 2 pills 3 times a day until gone, and go to the dental clinic on Wednesday morning to be worked in. Return to the emergency room if worsening such as increased facial swelling or fever. Sepsis Event Note (ED) - Evaluation Sepsis Screening Result: No Definite Risk - Focused Exam Vital Signs: Vital Signs Temp Pulse Resp BP Pulse Ox 08/21/20 17:49 98.5 F 86 16 134/92 H 100 08/21/20 17:34 98.5 F 86 16 134/92 H 100
== END 2020-08-21 18:29 | disposition home or self-care (01) ==
LOC: JP.ED 16:54
DX: K04.7 Periapical abscess without sinus (principal); K02.9 Dental caries, unspecified; F41.9 Anxiety disorder, unspecified; F32.9 Major depressive disorder, single episode, unspecified; I10 Essential (primary) hypertension; F17.210 Nicotine dependence, cigarettes, uncomplicated; Z88.0 Allergy status to penicillin; Z79.899 Other long term (current) drug therapy
CPT/HCPCS: 99282

== ENCOUNTER 2020-11-07 18:43 | Emergency (ER) | payer MEDICAID ==
[2020-11-07 19:01] VITALS: BP 164/99; PULSE 76
[2020-11-07] MEDS ORDERED: Ketorolac 60 MG/2 ML SDV IM ONE (19:15)
[2020-11-07] MEDS ORDERED: Acetaminophen/HYDROcodone 325-5 MG Tab PO ONE (19:17)
--- NOTE | 2020-11-07 19:17 | EDM.PDOC ---
ED HPI GENERAL MEDICAL PROBLEM - General Chief Complaint: General Stated Complaint: RIGHT SIDE TOOTH ACH Time Seen by Provider: 11/07/20 19:17 Source of Information: Reports: Patient History Limitations: Reports: No Limitations - History of Present Illness INITIAL COMMENTS - FREE TEXT/NARRATIVE: pt arrived with severe pain in the rt upper most posterior molar. She does not have a dentist. 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 Onset: Today, Sudden Duration: Hour(s): Location: Reports: Face Associated Symptoms: Reports: No Other Symptoms right upper tooth Pain Score (Numeric/FACES): 10 - Related Data Allergies Allergy/AdvReac Type Severity Reaction Status Date / Time Penicillins Allergy Rash Verified 11/07/20 18:57 Home Meds: Home Meds Sertraline HCl 100 mg PO DAILY 09/17/18 [History] Lisinopril/Hydrochlorothiazide [Lisinopril-Hctz 20-12.5 mg Tab] 1 tab PO DAILY 11/07/20 [History] Past Medical History HEENT History: Reports: Impaired Vision Cardiovascular History: Reports: Hypertension Gastrointestinal History: Reports: GERD 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 Musculoskeletal History: Reports: Other (See Below) Other Musculoskeletal History: torn mcl right knee Psychiatric History: Reports: Addiction, Anxiety, Depression, Suicide Attempt Endocrine/Metabolic History: Reports: Diabetes, Type II Other Endocrine/Metabolic History: prior type II DM diagnosis - Infectious Disease History Infectious Disease History: Reports: Chicken Pox - Past Surgical History GI Surgical History: Reports: Cholecystectomy Social & Family History - Family History Family Medical History: No Pertinent Family History - Tobacco Use Tobacco Use Status *Q: Current Every Day Tobacco User Years of Tobacco use: 19 Packs/Tins Daily: 0.5 - Caffeine Use Caffeine Use: Reports: Soda Other Caffeine Use: many per day - Recreational Drug Use Recreational Drug Use: Yes Drug Use in Last 12 Months: No Recreational Drug Type: Reports: Methamphetamine Recreational Drug Last Use: march 2020 ED ROS GENERAL - Review of Systems Review Of Systems: See Below Constitutional: Reports: No Symptoms HEENT: Reports: Dental Pain Respiratory: Reports: No Symptoms Cardiovascular: Reports: No Symptoms Endocrine: Reports: No Symptoms GI/Abdominal: Reports: No Symptoms : Reports: No Symptoms Musculoskeletal: Reports: No Symptoms Skin: Reports: No Symptoms ED EXAM, GENERAL - Physical Exam Exam: See Below Free Text/Narrative:: pt arrived with severe dental pain in the rt upper molar area. Exam Limited By: No Limitations General Appearance: Alert, Anxious, Moderate Distress Ears: Normal TMs Nose: Normal Inspection Throat/Mouth: Other (pt has a carrious upper molar. This is tender to push on. The area above the tooth appears to have a abcess. ) Head: Atraumatic Neck: Normal Inspection Respiratory/Chest: No Respiratory Distress Cardiovascular: Regular Rate, Rhythm Course - Vital Signs Last Recorded V/S: Last Vital Signs Temp 36.2 C 11/07/20 19:01 Pulse 76 11/07/20 19:01 Resp 20 11/07/20 19:01 BP 164/99 H 11/07/20 19:01 Pulse Ox 100 11/07/20 19:01 - Orders/Labs/Meds Meds: Medications Discontinued Medications Generic Name Dose Route Start Last Admin Trade Name Freq PRN Reason Stop Dose Admin Hydrocodone Bitart/Acetaminophen 1 tab 11/07/20 19:17 [place] 325-5 Mg PO 11/07/20 19:18 ONETIME ONE Ketorolac Tromethamine 60 mg 11/07/20 19:15 Toradol IM 11/07/20 19:16 ONETIME ONE Departure - Departure Time of Disposition: 19:17 Disposition: Home, Self-Care 01 Condition: Fair Clinical Impression: Dental abscess - Discharge Information Instructions: Dental Abscess, [id number] Referrals: PCP,None [Primary Care Provider] - Forms: ED Department Discharge Care Plan Goals: push fluids, demtal appt Wednesday, clindomycin 300mg tid, tordol 10 mg q6h prn for pain. Sepsis Event Note (ED) - Evaluation Sepsis Screening Result: No Definite Risk - Focused Exam Vital Signs: Vital Signs Temp Pulse Resp BP Pulse Ox 11/07/20 19:01 36.2 C 76 20 164/99 H 100 11/07/20 19:00 36.2 C 76 20 164/99 H 100
[2020-11-07] MEDS ORDERED: Clindamycin HCl 150 MG Cap PO ONE (19:28)
== END 2020-11-07 19:53 | disposition home or self-care (01) ==
LOC: JP.ED 18:43
DX: K04.7 Periapical abscess without sinus (principal); I10 Essential (primary) hypertension; F41.9 Anxiety disorder, unspecified; F32.9 Major depressive disorder, single episode, unspecified; E11.9 Type 2 diabetes mellitus without complications; F17.210 Nicotine dependence, cigarettes, uncomplicated; Z88.0 Allergy status to penicillin; Z79.899 Other long term (current) drug therapy
CPT/HCPCS: 96372; 99282; 99283; A9270; J1885

== ENCOUNTER 2023-04-09 21:16 | Emergency (ER) | payer MEDICAID ==
[2023-04-09 21:33] VITALS: BP 174/108; PULSE 81
[2023-04-09] MEDS ORDERED: Ketorolac 10 MG Tab PO ONE (21:48)
== END 2023-04-09 21:58 | disposition home or self-care (01) ==
LOC: JP.ED 21:16 → EEVIPCON 21:16 → JP.ED 21:58
DX: K04.7 Periapical abscess without sinus (principal); K02.9 Dental caries, unspecified; K00.7 Teething syndrome; E11.9 Type 2 diabetes mellitus without complications; I10 Essential (primary) hypertension; K21.9 Gastro-esophageal reflux disease without esophagitis; Z88.0 Allergy status to penicillin; Z72.0 Tobacco use; Z79.899 Other long term (current) drug therapy; Z79.84 Long term (current) use of oral hypoglycemic drugs
CPT/HCPCS: 99282; A9270

== ENCOUNTER 2023-05-27 12:54 | Emergency (ER) | payer MEDICAID ==
[2023-05-27 13:14] VITALS: BP 137/85; PULSE 80
[2023-05-27 13:37] LABS: BASOPHILS ABSOLUTE AUTO 0.05 K/uL (0.00-0.10); BASOPHILS PERCENT AUTO 0.6 % (0.1-1.3); EOSINOPHILS ABSOLUTE AUTO 0.26 K/uL (0.00-0.40); EOSINOPHILS PERCENT AUTO 2.9 % (0.0-5.4); HEMATOCRIT 38.2 % (34.3-46.0); HEMOGLOBIN 13.6 g/dL (11.2-15.5); IMMATURE GRAN ABSOLUTE AUTO 0.03 K/uL (0.00-0.23); IMMATURE GRAN PERCENT AUTO 0.3 % (0.0-0.7); LYMPHOCYTES ABSOLUTE AUTO 1.93 K/uL (0.8-3.3); LYMPHOCYTES PERCENT AUTO 21.6 % (11.4-47.7); MEAN CORPUSCULAR HEMOGLOBIN 27.1 pg (31.6-35.5); MEAN CORPUSCULAR HGB CONC 35.6 g/dL (31.6-35.5); MEAN CORPUSCULAR VOLUME 76.2 fL (81.4-99.0); MONOCYTES ABSOLUTE AUTO 0.48 K/uL (0.20-0.90); MONOCYTES PERCENT AUTO 5.4 % (3.3-12.6); NEUTROPHILS ABSOLUTE AUTO 6.18 K/uL (1.0-7.6); NEUTROPHILS PERCENT AUTO 69.2 % (40.0-78.1); PLATELET COUNT,PLT 283 K/uL (130-375); RED BLOOD CELL COUNT 5.01 M/uL (3.77-5.24); WHITE BLOOD CELL COUNT,WBC 8.9 K/uL (3.2-11.0)
[2023-05-27 13:51] LABS: CALCIUM 8.8 mg/dL (8.5-10.1); CREATININE 1.2 mg/dL (0.6-1.0); EST CRCL DRUG DOSING (CG) 52.52 mL/min; POTASSIUM,K 4.2 mmol/L (3.6-5.2)
[2023-05-27 13:54] LABS: ANION GAP 12.2 mmol/L (5.0-14.0)
[2023-05-27] MEDS ORDERED: metFORMIN 500 MG Tab PO ONE (14:27)
== END 2023-05-27 14:36 | disposition home or self-care (01) ==
LOC: JP.ED 12:54
DX: E11.65 Type 2 diabetes mellitus with hyperglycemia (principal); I10 Essential (primary) hypertension; F17.210 Nicotine dependence, cigarettes, uncomplicated; K21.9 Gastro-esophageal reflux disease without esophagitis; Z88.0 Allergy status to penicillin; Z79.84 Long term (current) use of oral hypoglycemic drugs; Z79.899 Other long term (current) drug therapy; Z86.16 Personal history of COVID-19
CPT/HCPCS: 36415; 80048; 85025; 99284; A9270

== ENCOUNTER 2023-10-13 08:33 | Emergency (ER) | payer MEDICAID ==
[2023-10-13 08:49] VITALS: BP 137/86; PULSE 68
[2023-10-13] MEDS ORDERED: Ondansetron 4 MG Tab.DIS PO ONE (09:06)
== END 2023-10-13 09:45 | disposition home or self-care (01) ==
LOC: JP.ED 08:33
DX: R11.2 Nausea with vomiting, unspecified (principal); E11.9 Type 2 diabetes mellitus without complications; Z79.84 Long term (current) use of oral hypoglycemic drugs; I10 Essential (primary) hypertension; K21.9 Gastro-esophageal reflux disease without esophagitis; Z86.16 Personal history of COVID-19; Z79.899 Other long term (current) drug therapy; Z88.0 Allergy status to penicillin
CPT/HCPCS: 82947; 99284; Q0162

== ENCOUNTER 2024-10-05 15:47 | Emergency (ER) | payer MEDICAID ==
[2024-10-05 17:29] VITALS: BP 111/70; PULSE 76
[2024-10-05] MEDS: Ketorolac 30 MG/ML SDV IM ONE (17:36)
== END 2024-10-05 18:15 | disposition home or self-care (01) ==
LOC: JP.ED 15:47
DX: H66.002 Acute suppurative otitis media without spontaneous rupture of ear drum, left ear (principal); I10 Essential (primary) hypertension; K21.9 Gastro-esophageal reflux disease without esophagitis; E11.9 Type 2 diabetes mellitus without complications; Z86.16 Personal history of COVID-19; Z90.49 Acquired absence of other specified parts of digestive tract; Z88.0 Allergy status to penicillin; Z79.2 Long term (current) use of antibiotics; Z79.84 Long term (current) use of oral hypoglycemic drugs; Z79.4 Long term (current) use of insulin; Z79.899 Other long term (current) drug therapy
CPT/HCPCS: 96372; 99282; J1885; 99283